=== PATIENT | female | born 1950 | race Caucasian/White ===

== ENCOUNTER 2019-10-27 18:49 | Emergency (ER) | payer MEDICARE, OTHER, SELFPAY ==
[2019-10-27 18:54] VITALS: BP 136/108; PULSE 64; RESP 24; O2SAT 98
--- NOTE | 2019-10-27 18:56 | DI.RAD.S_ITS ---
PROCEDURE: XR CHEST 1V INDICATIONS: chest pain TECHNIQUE: One view of the chest was acquired. COMPARISON: None. FINDINGS: Surgical changes and devices: None. Lungs and pleura: Lungs are clear. No pleural effusions or pneumothorax. Mediastinum: Mediastinal contours appear normal. Heart size is normal. Bones and chest wall: No suspicious bony lesions. Overlying soft tissues appear unremarkable. IMPRESSION: No acute cardiopulmonary disease process. Dictated by: Alysia Castro MD, PhD on 10/27/2019 at 19:13 Approved by: Alysia Castro MD, PhD on 10/27/2019 at 19:13
[2019-10-27 19:06] LABS: Add Manual Diff / Slide Review NO; Basophils Absolute Auto 100 /uL (0-100); Basophils Percent Auto 0.9 % (0-2); Eosinophils Absolute Auto 500 /uL (0-450); Eosinophils Percent Auto 5.9 % (2-4); Hematocrit 37.7 % (36-46); Hemoglobin 12.8 g/dL (12.0-16.0); Lymphocytes Absolute Auto 1700 /uL (1100-4500); Lymphocytes Percent Auto 21.8 % (25-40); Mean Corpuscular HGB Conc 33.9 % (30-36); Mean Corpuscular Volume 88.4 fL (80-100); Monocytes Absolute Auto 600 /uL (0-900); Monocytes Percent Auto 8.1 % (3-14); Neutrophils Absolute Auto 5000 /uL (1500-7000); Neutrophils Percent Auto 63.3 % (50-75); Platelet Count 242 X10^3/uL (150-400); Red Blood Cell Count 4.26 X10^6/uL (4.0-5.2); Red Cell Distribution Width 13.3 % (11.6-14.8); White Blood Cell Count 7.9 X10^3/uL (4.5-11.0)
[2019-10-27 19:12] LABS: INR 0.9 (0.9-1.3); Prothrombin Time 10.8 SECONDS (10.1-12.7)
--- NOTE | 2019-10-27 19:13 | ED.CHESTPAIN ---
HPI - Chest Pain General Chief Complaint: Chest Pain Stated Complaint: CHEST PAIN Time Seen by Provider: 10/27/19 18:55 Source: patient Mode of arrival: Ambulatory Limitations: no limitations History of Present Illness HPI narrative: 69-year-old female here for evaluation of chest pressure. She states she woke up with a pressure this morning. Was not worse with palpation or movement. Potentially worse when she took a deep breath. She states that has been off and on throughout the day. Has never had anything like this in the past. Has had a stress test in the past that was 10 years ago. Time my evaluation patient was symptom-free. Has not tried anything for her symptoms prior to arrival Related Data Previous Rx's Medication Instructions Recorded sucralfate [Carafate] 10 ml PO QID #420 ml 10/27/19 Allergies Allergy/AdvReac Type Severity Reaction Status Date / Time Penicillins Allergy Unknown Verified 10/27/19 18:58 Review of Systems Constitutional Constitutional: Denies fever(s) and Denies headache(s) ENT Ears, Nose, Mouth, and Throat: Denies headache(s) and Denies sore throat Cardiovascular Cardiovascular: Reports chest pain, Denies palpitations and Denies dyspnea Respiratory Respiratory: Denies dyspnea Gastrointestinal Gastrointestinal: Denies abdominal pain, Denies nausea and Denies vomiting Genitourinary Genitourinary: Denies dysuria Musculoskeletal Musculoskeletal: Denies back pain, Denies myalgias and Denies arthralgias Integumentary/Breasts Skin/Breast: Denies lesions and Denies rash Neurologic Neurologic: Denies behavioral changes and Denies headache(s) Psychiatric Psychiatric: Denies behavioral changes Endocrine Endocrine: Denies palpitations Hematologic/Lymphatic Hematologic/Lymphatic: Denies easy bleeding and Denies easy bruising Patient History Medical History (Updated 10/28/19 @ 01:35 by Reinier Rivas DO) Gastroesophageal reflux disease (Acute) Social History Smoking Status: Never smoker Smoking Status: Never smoker alcohol intake frequency: 0-2 drinks per day Substance Use Type: does not use Exam Initial Vital Signs Initial Vital Signs: Vital Signs Pulse Rate 64 10/27/19 18:54 Respiratory Rate 24 10/27/19 18:54 Blood Pressure 136/108 H 10/27/19 18:54 Pulse Oximetry 98 10/27/19 18:54 Const General: cooperative, healthy appearing and comfortable HENMT Head: normal to inspection and normocephalic Resp Effort & Inspection: normal respiratory effort Auscultation: clear to auscultation bilaterally Cardio Rate: regular rate Rhythm: regular rhythm GI Inspection: non-distended Palpation: No firm Skin Lesions: no lesions Rashes: no rashes Neuro General: alert, awake and oriented x3 Cognition: normal cognition Speech: speech normal Motor: muscle tone normal throughout Extrem General: normal to inspection, capillary refill normal and No edema Psych Appearance: grossly normal and well kempt Scores GCS [place] coma scale eye opening: Spontaneous [place] coma scale verbal response: Orientated [place] coma scale motor response: Obey commands [place] coma scale total score: 15 HEART Score Heart Score history: Slightly Suspicious Heart Score EKG: Normal Heart Score Age: > or = 65 years old Heart Score risk factors: 1-2 risk factors Heart Score troponin: < or = to normal limit Heart Score Total: 3 Course Orders Ordered: ED Orders 10/27/19 18:56 XR chest 1V Stat 10/27/19 18:57 EKG-12 Lead Stat 10/27/19 19:00 Complete Blood Count AUTO DIFF Stat Comprehensive Metabolic Panel Stat Lipase Stat Partial Thromboplastin Time Stat Prothrombin Time INR Stat Troponin I Stat Discontinued Medications Apixaban (Eliquis) 10 mg PO NOW ONE Stop: 10/27/19 20:14 Last Admin: 10/27/19 20:14 Dose: Not Given Documented by: ILYA Al Hydrox/Mg Hydrox/Simethicone 20 ml/ Lidocaine HCl 15 ml 0 ml PO NOW ONE Stop: 10/27/19 20:11 Last Admin: 10/27/19 20:17 Dose: 45 ml Documented by: JENNIFER Vital Signs Vital signs: Vital Signs - 8 hr 10/27/19 18:54 10/27/19 19:30 10/27/19 20:01 Pulse Rate 64 52 L 51 L Respiratory Rate 24 12 18 Blood Pressure 136/108 H Blood Pressure [Left Arm] 142/66 H 140/67 Pulse Oximetry 98 97 98 MDM - Chest Pain Lab Data Attestation: I reviewed the patient's lab results. Result diagrams: 10/27/19 19:00 10/27/19 19:00 Labs: Lab Results 10/27/19 10/27/19 10/27/19 Range/Units 19:00 19:00 19:00 WBC 7.9 (4.5-11.0) X10^3/uL RBC 4.26 (4.0-5.2) X10^6/uL Hgb 12.8 (12.0-16.0) g/dL Hct 37.7 (36-46) % MCV 88.4 (80-100) fL MCH 30.0 (26-34) PG MCHC 33.9 (30-36) % RDW 13.3 (11.6-14.8) % Plt Count 242 (150-400) X10^3/uL Neut % (Auto) 63.3 (50-75) % Lymph % (Auto) 21.8 L (25-40) % [place] % (Auto) 8.1 (3-14) % Eos % (Auto) 5.9 H (2-4) % Baso % (Auto) 0.9 (0-2) % Neut # (Auto) 5000 (3845-7803) /uL Lymph # (Auto) 1700 (9348-1203) /uL [place] # (Auto) 600 (0-900) /uL Eos # (Auto) 500 H (0-450) /uL Baso # (Auto) 100 (0-100) /uL PT 10.8 (10.1-12.7) SECONDS INR 0.9 (0.9-1.3) APTT 31 (26.4-36.2) SECONDS Sodium 137 (137-145) mmol/L Potassium 3.8 (3.4-5.1) mmol/L Chloride 101 (98-107) mmol/L Carbon Dioxide 28 (22-32) mmol/L BUN 24 H (7-17) mg/dL Creatinine 0.70 (0.52-1.04) mg/dL Estimated GFR > 60.0 (>60) mL/min BUN/Creatinine Ratio 34.3 H (6-22) Glucose 95 (80-110) mg/dL Calcium 10.2 (8.4-10.2) mg/dL Total Bilirubin 0.5 (0.2-1.3) mg/dL AST 38 H (14-36) IU/L ALT 48 H (<35) IU/L Alkaline Phosphatase 92 (38-126) U/L Troponin I < 0.012 (0.01-0.034) ng/mL Total Protein 7.0 (6.3-8.2) g/dL Albumin 4.3 (3.5-5.0) g/dL Globulin 2.7 (1.7-4.1) g/dL Albumin/Globulin Ratio 1.6 (1.0-2.8) Lipase 71 (23-300) U/L Imaging Data Chest x-ray: Radiologist's Impression: [address] [id number] XRay Report Signed Patient: Olga Blackwood BMR#: [id number] : 2Acct:[id number] Age/Sex: 69 / FDate of Service: 10/27/19 Loc: ED Accession Number: [id number] Procedure: XR chest 1V Ordering Provider: Reinier Rivas D.O. PROCEDURE: XR CHEST 1V INDICATIONS: chest pain TECHNIQUE: One view of the chest was acquired. COMPARISON: None. FINDINGS: Surgical changes and devices: None. Lungs and pleura: Lungs are clear. No pleural effusions or pneumothorax. Mediastinum: Mediastinal contours appear normal. Heart size is normal. Bones and chest wall: No suspicious bony lesions. Overlying soft tissues appear unremarkable. IMPRESSION: No acute cardiopulmonary disease process. Dictated by: Alysia Castro MD, PhD on 10/27/2019 at 19:13 Approved by: Alysia Castro MD, PhD on 10/27/2019 at 19:13 ECG Data Attestation: I personally reviewed and interpreted this ECG as follows: Prior ECG tracings: not available for review Interpretation: Sinus bradycardia Ventricular rate of 56, occasional PACs Normal axis Normal QRS Normal QTC No ST T wave changes MDM Narrative Medical decision making narrative: Patient has been asymptomatic since being here in the emergency department. Her EKG is unremarkable. Chest x-ray is unremarkable. Troponin is negative. She has had off and on symptoms throughout today. Had a long discussion with her and her regarding her symptoms. She does have a low risk heart score. We did discuss staying here in the emergency department for a 2nd troponin. We did discuss her risks of acute coronary syndrome. After this discussion patient decided not to stay for the 2nd troponin. She was alert oriented x3. GCS 15. In my opinion and the capacity to make decisions. No distracting injuries. Her was at bedside when we had the discussion. I did inform her that she needed to talk with her primary doctor about obtaining a stress test. She was given return precautions and follow-up instructions. She expressed understanding and agreement with plan. Discharge Plan Departure Patient Disposition: Home Clinical Impression: Atypical chest pain Discharge Date/Time: 10/27/19 20:27 Instructions: DI for Atypical Chest Pain Activity Restrictions/Additional Instructions: Take the Carafate like we discussed. Contact your primary doctor to discuss the indications for further testing to include a stress test. Return to the emergency department for any new or worsening symptoms Prescriptions: New sucralfate [Carafate] 100 mg/mL suspension 10 ml PO QID Qty: 420 RF: 0
[2019-10-27 19:15] LABS: PTT Partial Thromboplastin Tim 31 SECONDS (26.4-36.2)
[2019-10-27 19:19] LABS: Alanine Aminotransferase 48 IU/L (<35); Albumin 4.3 g/dL (3.5-5.0); Albumin Globulin Ratio 1.6 (1.0-2.8); Alkaline Phosphatase 92 U/L (38-126); Aspartate Aminotransferase 38 IU/L (14-36); BUN Creatinine Ratio 34.3 (6-22); Bilirubin Total 0.5 mg/dL (0.2-1.3); Blood Urea Nitrogen 24 mg/dL (7-17); Calcium 10.2 mg/dL (8.4-10.2); Carbon Dioxide 28 mmol/L (22-32); Chloride 101 mmol/L (98-107); Estimated Glomerular Filt Rate > 60.0 mL/min (>60); Globulin 2.7 g/dL (1.7-4.1); Glucose 95 mg/dL (80-110); HEMOLYSIS < 15 (0-50); Lipase 71 U/L (23-300); Potassium 3.8 mmol/L (3.4-5.1); Sodium 137 mmol/L (137-145)
[2019-10-27 19:30] VITALS: BP 142/66; PULSE 52; RESP 12; O2SAT 97
[2019-10-27 19:31] LABS: Troponin I < 0.012 ng/mL (0.01-0.034)
[2019-10-27 20:01] VITALS: BP 140/67; PULSE 51; RESP 18; O2SAT 98
[2019-10-27] MEDS: MAG HYDROX/ALUMINUM/SIMETH SUS 20 ML, LIDOCAINE VISCOUS 2% 15 ML PO (20:17)
== END 2019-10-27 20:27 | disposition home or self-care (01) ==
PROVIDERS: Emergency Provider Emergency Medicine
DX: R07.89 Other chest pain (principal)
CPT/HCPCS: 36415; 71045; 80053; 83690; 84484; 85025; 85610; 85730; 93005; 99284; 99285

== ENCOUNTER 2022-10-27 16:03 | Emergency (ER) | payer MEDICARE, OTHER, SELFPAY ==
[2022-10-27 16:21] VITALS: BP 110/75; PULSE 60; RESP 15; TEMP 36.8; O2SAT 96; BMI 26.8
--- NOTE | 2022-10-27 16:27 | DI.RAD.S_ITS ---
PROCEDURE: XR CHEST 2V INDICATIONS: cough TECHNIQUE: 2 views of the chest were acquired. COMPARISON: [facility], CR, XR CHEST 1V, 10/27/2019, 19:05. FINDINGS: Surgical changes and devices: None. Lungs and pleura: Lungs are clear. No pleural effusions or pneumothorax. Mediastinum: Mediastinal contours are normal. Heart size is normal. Bones and chest wall: No suspicious bony abnormalities. Soft tissues appear unremarkable. IMPRESSION: No evidence acute pulmonary process. Dictated by: Tahir Dumas M.D. on 10/27/2022 at 17:12 Approved by: Tahir Dumas M.D. on 10/27/2022 at 17:12
[2022-10-27 17:17] LABS: Influenza A - CEPHEID Flu A NEGATIVE (NEGATIVE); Influenza B - CEPHEID Flu B NEGATIVE (NEGATIVE); Respiratory Syncytial Virus Negative (Negative)
[2022-10-27 17:24] LABS: COVID-19 CEPHEID 4-PLEX PCR POSITIVE (Negative)
--- NOTE | 2022-10-27 18:27 | ED_ITS ---
HPI - General Adult General Chief complaint: Upper Respiratory Symptoms Stated complaint: Fever, Sore throat, Cough Time Seen by Provider: 10/27/22 18:27 Source: patient Mode of arrival: Ambulatory History of Present Illness HPI narrative: 72-year-old woman with a history of hypothyroidism and hyperlipidemia had a mild upper respiratory infection for the last 3 days. Minor cough, no hypoxia, chest pain, palpitations, mild nausea but no vomiting or diarrhea. She is had minimal fever. Saw her primary care doctor today after a negative COVID test at home. Was concerned that she still had COVID and send her to the emergency department for COVID test and a chest x-ray. COVID test is positive chest x-ray is unremarkable. Related Data Previous Rx's Medication Instructions Recorded sucralfate 100 mg/mL oral 10 ml PO QID #420 mL 10/27/19 suspension (Carafate) benzonatate 200 mg capsule 200 mg PO BID-TID PRN cough #20 10/27/22 caps nirmatrelvir 300 mg (150 mg See Rx Instructions PO .COMPLEX 10/27/22 x2)-ritonavir 100 mg tablet,dose #30 ea pack(EUA) (Paxlovid) Allergies Allergy/AdvReac Type Severity Reaction Status Date / Time Penicillins Allergy Unknown Verified 10/27/22 16:21 Review of Systems Review of Systems Narrative: Remainder of complete review of systems is otherwise unremarkable except for that included in the HPI. Patient History Medical History (Updated 10/27/22 @ 18:44 by Maria Ines Mock MD) Gastroesophageal reflux disease Hyperlipidemia Hypothyroidism (acquired) Social History Smoking Status: Never smoker Smoking Status: Never smoker alcohol intake frequency: holidays/special occasions only Substance Use Type: does not use Exam Initial Vital Signs Initial Vital Signs: Vital Signs Temperature 98.3 F 10/27/22 16:21 Pulse Rate 60 10/27/22 16:21 Respiratory Rate 15 10/27/22 16:21 Blood Pressure 110/75 10/27/22 16:21 Pulse Oximetry 96 10/27/22 16:21 Oxygen Delivery Method 10/27/22 16:21 General: Healthy appearing, in no acute distress. Able to give a complete and coherent history. Well-nourished well-developed HEENT: Moist mucous membranes, normal sclera with reactive pupils, Neck: No cervical adenopathy Respiratory: Lungs are clear to auscultation, no wheezing no rales no rhonchi. Full and symmetrical air movement Cardiac: Regular rate and rhythm no murmurs no bruits Abdomen: Soft, nontender, good bowel tones, no flank pain Skin: Warm and dry, no rashes Neurologic: Grossly neurologically intact with no obvious asymmetries or abnormalities Psych: Cooperative, appropriate insight and affect Course Orders Ordered: ED Orders 10/27/22 16:25 Covid-19 + FLU A/B + RSV - PCR Stat 10/27/22 16:27 Chest [XR chest 2V] Stat Vital Signs Vital signs: Vital Signs - 8 hr 10/27/22 16:21 Temperature 98.3 F Pulse Rate 60 Respiratory Rate 15 Blood Pressure 110/75 Pulse Oximetry 96 Oxygen Delivery Method Room Air Medical Decision Making Lab Data Labs: Lab Results 10/27/22 Range/Units 16:25 SARS-CoV-2 (PCR) Positive H (Negative) Influenza A (RT-PCR) Flu a negative (NEGATIVE) Influenza B (RT-PCR) Flu b negative (NEGATIVE) RSV (PCR) Negative (Negative) Imaging Data Chest x-ray: Radiologist's Impression: FINDINGS:? ? Surgical changes and devices:? None.? ? Lungs and pleura:? Lungs are clear.? No pleural effusions or pneumothorax.? ? Mediastinum:? Mediastinal contours are normal.? Heart size is normal.? ? Bones and chest wall:? No suspicious bony abnormalities.? Soft tissues appear unremarkable.? ? IMPRESSION:? No evidence acute pulmonary process. ? ? ? Dictated by: Tahir Dumas M.D. on 10/27/2022 at 17:12 ? ? MDM Narrative Medical decision making narrative: URI symptoms without hypoxia for 3 days positive COVID test negative chest x- ray. No contraindications to paxlovid. Prescription is written, reviewed anticipated course of recovery, reasons to return to the emergency department. Her has similar symptoms and is also given a prescription for paxlovid. They are safe for discharge home Discharge Plan Departure Patient Disposition: Home Clinical Impression: COVID-19 Instructions: COVID-19 Activity Restrictions/Additional Instructions: Thank you for coming in today You do have COVID via PCR testing. Your chest x-ray is unremarkable and your oxygen levels are excellent. This will likely be a mild cold like event for you. If you find that you are getting worse, please feel free to return to the emergency department. There is evidence that starting Paxlovid within 5 days of initial symptoms is helpful in avoiding hospitalization and additional complications. I have given you a prescription for this along with a prescription for benzonatate to help with the cough and see if you can improve overall sleep to heal more efficiently. Prescriptions: New Paxlovid (EUA) 300 mg (150 mg x 2)-100 mg tablets,dose pack See Rx Instructions .ROUTE .COMPLEX Qty: 30 0RF Rx Instructions: take TWO 150 mg tablets of nirmatrelvir with ONE 100 mg tablet of ritonavir twice daily for 5 days benzonatate 200 mg capsule 200 mg PO BID-TID PRN (Reason: cough) Qty: 20 0RF No Action sucralfate [Carafate] 100 mg/mL suspension 10 ml PO QID Qty: 420 0RF Rx Instructions: swish in mouth and swallow; use after food/drink
== END 2022-10-27 18:53 | disposition home or self-care (01) ==
PROVIDERS: Emergency Medicine; Emergency Provider Emergency Medicine
DX: U07.1 COVID-19 (principal)
CPT/HCPCS: 0241U; 71046; 99281; 99283

== ENCOUNTER 2023-03-01 19:53 | Emergency (ER) | payer MEDICARE, OTHER, SELFPAY ==
[2023-03-01] VITALS (7 sets, daily range): BP systolic 119–144; BP diastolic 61–72; PULSE 59–78; RESP 18; TEMP 37.3; O2SAT 94–98; BMI 26.4
[2023-03-01] MEDS: ONDANSETRON 4 MG/2 ML INJ IV (20:26)
[2023-03-01 21:09] LABS: Add Manual Diff / Slide Review NO; Basophils Absolute Auto 0 /uL (0-100); Basophils Percent Auto 0.3 % (0-2); Eosinophils Absolute Auto 200 /uL (0-450); Eosinophils Percent Auto 1.6 % (2-4); Hematocrit 41.2 % (36-46); Hemoglobin 14.2 g/dL (12.0-16.0); Lymphocytes Absolute Auto 300 /uL (1100-4500); Lymphocytes Percent Auto 3.6 % (25-40); Mean Corpuscular HGB Conc 34.5 % (30-36); Mean Corpuscular Hemoglobin 30.2 PG (26-34); Mean Corpuscular Volume 87.5 fL (80-100); Monocytes Absolute Auto 300 /uL (0-900); Monocytes Percent Auto 3.4 % (3-14); Neutrophils Absolute Auto 8500 /uL (1500-7000); Neutrophils Percent Auto 91.1 % (50-75); Platelet Count 252 X10^3/uL (150-400); Red Blood Cell Count 4.71 X10^6/uL (4.0-5.2); White Blood Cell Count 9.3 X10^3/uL (4.5-11.0)
[2023-03-01 21:21] LABS: Alanine Aminotransferase 40 IU/L (<35); Albumin 4.4 g/dL (3.5-5.0); Albumin Globulin Ratio 1.5 (1.0-2.8); Alkaline Phosphatase 82 U/L (38-126); Aspartate Aminotransferase 36 IU/L (14-36); BUN Creatinine Ratio 31.1 (6-22); Bilirubin Total 0.6 mg/dL (0.2-1.3); Blood Urea Nitrogen 23 mg/dL (7-17); Carbon Dioxide 23 mmol/L (22-32); Chloride 105 mmol/L (98-107); Estimated Glomerular Filt Rate > 60 mL/min (>60); Glucose 118 mg/dL (80-110); HEMOLYSIS < 15 (0-50); Lipase 27 U/L (23-300); Sodium 136 mmol/L (137-145); Total Protein 7.4 g/dL (6.3-8.2)
[2023-03-01] MEDS: SODIUM CHLORIDE 0.9% 1,000 ML 1000 ML IV (21:50)
--- NOTE | 2023-03-01 23:20 | ED_ITS ---
HPI - Nausea/Vomiting/Diarrhea General Chief complaint: Nausea/Vomiting/Diarrhea Stated complaint: Vomiting, Diarrhea Time Seen by Provider: 03/01/23 21:36 Source: patient Mode of arrival: Ambulatory History of Present Illness HPI Narrative: Patient is a healthy 72-year-old female who presents with nausea vomiting diarrhea that started around 3:00 a.m. today. She says it is really been unable to. She has a little bit of abdominal cramping. No dizziness or lightheadedness. She denies any recent antibiotics. She and her did travel to [place] fairly recently but he is not sick. No fevers or chills. She is generally does not feel well. Related Data Previous Rx's Medication Instructions Recorded sucralfate 100 mg/mL oral 10 ml PO QID #420 mL 10/27/19 suspension (Carafate) benzonatate 200 mg capsule 200 mg PO BID-TID PRN cough #20 10/27/22 caps nirmatrelvir 300 mg (150 mg See Rx Instructions PO .COMPLEX 10/27/22 x2)-ritonavir 100 mg tablet,dose #30 ea pack(EUA) (Paxlovid) ondansetron 4 mg disintegrating 4 mg PO Q8H PRN nausea and 03/01/23 tablet vomiting #10 tabs Allergies Allergy/AdvReac Type Severity Reaction Status Date / Time Penicillins Allergy Unknown Verified 03/01/23 20:18 Review of Systems Review of Systems ROS Unobtainable: All systems reviewed & are unremarkable except as noted in HPI and below Patient History Medical History Gastroesophageal reflux disease Hyperlipidemia Hypothyroidism (acquired) Social History Smoking Status: Never smoker Smoking Status: Never smoker alcohol intake frequency: holidays/special occasions only Substance Use Type: does not use Exam Initial Vital Signs Initial Vital Signs: Vital Signs Temperature 99.1 F 03/01/23 19:58 Pulse Rate 65 03/01/23 19:58 Respiratory Rate 18 03/01/23 19:58 Blood Pressure 138/67 03/01/23 19:58 Pulse Oximetry 96 03/01/23 19:58 Oxygen Delivery Method Room Air 03/01/23 19:58 GENERAL: Alert pleasant 72-year-old female and in no acute distress. HEENT: Head atraumatic,EOMI, pupils reactive, face symmetric, moist mucous membranes CARDIOVASCULAR: Regular rate and rhythm without murmurs, rubs or gallops. RESPIRATORY: Breath sounds equal bilaterally, no wheezes rales or rhonchi. ABDOMEN: Soft, nontender. Normoactive bowel sounds all 4 quadrants. No guarding or rebound. EXTREMITIES: Normal range of motion, no clubbing or edema. Neurovascularly intact NEUROLOGICAL: Alert and oriented x4.Normal gait and speech. SKIN: Warm, dry, no laceration, no petechiae, no rashes or lesions. Course Orders Ordered: ED Orders 03/01/23 20:18 EKG-12 Lead Stat 03/01/23 20:30 Complete Blood Count AUTO DIFF Stat Comprehensive Metabolic Panel Stat Lipase Stat Discontinued Medications Sodium Chloride (Normal Saline 0.9%) 1,000 mls @ 1,000 mls/hr IV BOLUS ONE Stop: 03/01/23 22:35 Last Infusion: 03/01/23 22:46 Dose: 0 mls/hr Documented By: Admin: 03/01/23 21:50 Dose: 1,000 mls/hr Documented By: AMU Ondansetron HCl (Ondansetron 4 Mg/2 Ml Inj) 4 mg IV NOW PRN PRN Reason: Nausea And Vomiting Last Admin: 03/01/23 20:26 Dose: 4 mg Documented By: LEONILA Ondansetron HCl (Ondansetron 4 Mg Odt Prepack) 1 bottle MISC SEEINSTR ONE Stop: 03/01/23 23:27 Last Admin: 03/01/23 23:32 Dose: 1 bottle Documented By: AMU Vital Signs Vital signs: Vital Signs - 8 hr 03/01/23 19:58 03/01/23 21:31 03/01/23 21:31 Temperature 99.1 F Pulse Rate 65 62 Respiratory Rate 18 Blood Pressure 138/67 144/65 H Pulse Oximetry 96 96 Oxygen Delivery Method Room Air Room Air 03/01/23 21:48 03/01/23 21:48 03/01/23 22:00 Temperature Pulse Rate 69 Respiratory Rate Blood Pressure 119/71 127/61 Pulse Oximetry Oxygen Delivery Method 03/01/23 22:00 03/01/23 22:30 03/01/23 22:30 Temperature Pulse Rate 66 78 Respiratory Rate Blood Pressure 136/64 Pulse Oximetry 95 94 Oxygen Delivery Method 03/01/23 23:00 03/01/23 23:00 03/01/23 23:30 Temperature Pulse Rate 61 59 L Respiratory Rate Blood Pressure 139/72 Pulse Oximetry 96 98 Oxygen Delivery Method MDM - Nausea/Vomiting/Diarrhea Lab Data 03/01/23 20:30 03/01/23 20:30 Labs: Lab Results 03/01/23 03/01/23 Range/Units 20:30 20:30 WBC 9.3 (4.5-11.0) X10^3/uL RBC 4.71 (4.0-5.2) X10^6/uL Hgb 14.2 (12.0-16.0) g/dL Hct 41.2 (36-46) % MCV 87.5 (80-100) fL MCH 30.2 (26-34) PG MCHC 34.5 (30-36) % RDW 14.0 (11.6-14.8) % Plt Count 252 (150-400) X10^3/uL Neut % (Auto) 91.1 H (50-75) % Lymph % (Auto) 3.6 L (25-40) % [place] % (Auto) 3.4 (3-14) % Eos % (Auto) 1.6 L (2-4) % Baso % (Auto) 0.3 (0-2) % Neut # (Auto) 8500 H (2889-8174) /uL Lymph # (Auto) 300 L (4456-9849) /uL [place] # (Auto) 300 (0-900) /uL Eos # (Auto) 200 (0-450) /uL Baso # (Auto) 0 (0-100) /uL Sodium 136 L (137-145) mmol/L Potassium 4.0 (3.4-5.1) mmol/L Chloride 105 (98-107) mmol/L Carbon Dioxide 23 (22-32) mmol/L BUN 23 H (7-17) mg/dL Creatinine 0.74 (0.52-1.04) mg/dL Estimated GFR > 60 (>60) mL/min BUN/Creatinine Ratio 31.1 H (6-22) Glucose 118 H (80-110) mg/dL Calcium 9.0 (8.4-10.2) mg/dL Total Bilirubin 0.6 (0.2-1.3) mg/dL AST 36 (14-36) IU/L ALT 40 H (<35) IU/L Alkaline Phosphatase 82 (38-126) U/L Total Protein 7.4 (6.3-8.2) g/dL Albumin 4.4 (3.5-5.0) g/dL Globulin 3.0 (1.7-4.1) g/dL Albumin/Globulin Ratio 1.5 (1.0-2.8) Lipase 27 (23-300) U/L Urine Dip Bedside Urine Glucose Negative Bedside Urine Bilirubin - Negative Bedside Urine Ketone +/- 5 Urine Specific [place] 1.030 Bedside Urine Occult Blood - Negative Bedside Urine pH 5.0 Bedside Urine Protein - Negative Bedside Urine Urobilinogen +/- 1mg Bedside Urine Nitrite - Negative Bedside Urine Leukocytes - Negative Esterase ECG Data Interpretation: Normal sinus rhythm rate 68 DC interval 122 QRS [address] changes or T- wave inversions MDM Narrative Medical decision making narrative: Patient is 72-year-old female without comorbidities presents to gastroenteritis like symptoms nausea vomiting diarrhea ongoing for under 24 hours. No evidence of acute dehydration no electrolyte abnormality or LAINA. She received IV fluids and Zofran. She is overall feeling better. Her abdomen is soft and nontender. No need for imaging at this time. Discussion of oral rehydration technique with her. Patient and both understand and agree. She is no leukocytosis or anemia on her blood work no need for antibiotics. Symptoms are consistent with a viral illness Discharge Plan Departure Patient Disposition: Home Clinical Impression: Gastroenteritis Instructions: DI for Viral Gastroenteritis -- Adult Activity Restrictions/Additional Instructions: 1) You have been diagnosed with gastroenteritis 2) What to do: Drink frequent but small amounts of fluids. I recommend Gatorade or a Gatorade-like product, as it has small amounts of sugar and salts that improve fluid retention. 3) Take medications as directed Zofran 4 mg every 8 hours if needed for nausea or vomiting 4) Follow up with your primary care provider in 2-3 days 5) Return to ER if you should have any new or worsening symptoms such as, unable to hold down fluids despite use of anti-nausea medications and the small volume oral rehydration strategy. Prescriptions: New ondansetron 4 mg tablet,disintegrating 4 mg PO Q8H PRN (Reason: nausea and vomiting) Qty: 10 0RF No Action sucralfate [Carafate] 100 mg/mL suspension 10 ml PO QID Qty: 420 0RF Rx Instructions: swish in mouth and swallow; use after food/drink Paxlovid (EUA) 300 mg (150 mg x 2)-100 mg tablets,dose pack See Rx Instructions .ROUTE .COMPLEX Qty: 30 0RF Rx Instructions: take TWO 150 mg tablets of nirmatrelvir with ONE 100 mg tablet of ritonavir twice daily for 5 days benzonatate 200 mg capsule 200 mg PO BID-TID PRN (Reason: cough) Qty: 20 0RF Stand Alone Forms: Patient Portal/API
[2023-03-01] MEDS: ONDANSETRON 4 MG ODT PREPACK 1 BOTTLE MISC (23:32)
== END 2023-03-01 23:37 | disposition home or self-care (01) ==
PROVIDERS: Emergency Provider Emergency Medicine
DX: K52.9 Noninfective gastroenteritis and colitis, unspecified (principal); R10.9 Unspecified abdominal pain
CPT/HCPCS: 36415; 80053; 81003; 83690; 85025; 93005; 93010; 96361; 96374; 99284; J2405

== ENCOUNTER → 2023-04-17 11:15 | Outpatient (CLI) | payer MEDICARE, OTHER, SELFPAY ==
--- NOTE | 2023-04-17 | DI.RAD.S_ITS ---
PROCEDURE: XR FOOT RT MIN 3V INDICATIONS: Rt Foot Pain TECHNIQUE: 3 views of the foot were acquired. COMPARISON: None. FINDINGS: Bones: No fractures or dislocations. No suspicious bony lesions. Mild polyarticular osteoarthritic degenerative changes noted. Soft tissues: No tibiotalar joint effusion. Achilles tendon appears normal. IMPRESSION: Mild osteoarthritis. Dictated by: Alysia Castro MD, PhD on 04/17/2023 at 13:17 Approved by: Alysia Castro MD, PhD on 04/17/2023 at 13:28
== END ==
PROVIDERS: PCP Internal Medicine; Referring Provider Podiatrist; Visit Provider Podiatrist
DX: M19.071 Primary osteoarthritis, right ankle and foot; M79.671 Pain in right foot
CPT/HCPCS: 73630

== ENCOUNTER 2023-08-09 08:47 | Day surgery (SDC) | payer MEDICARE, OTHER, SELFPAY ==
--- NOTE | 2023-08-09 | PATH_ITS ---
[facility] Accession Number: [id number] No. of containers..03 Tissue . 01 Material submitted: . PART A: colon - CECAL POLYP PART B: colon - ASCENDING POLYPS PART C: rectum - RECTAL POLYP . 01 Diagnosis: A. Cecal Polyp: Tubular adenoma. . B. Ascending Polyps: Portion of tubular adenoma x 1. Superficial portion of colorectal mucosa x 1 with benign lymphoid aggregates. . C. Rectal Polyp: Portions of tubulovillous adenoma. Negative for malignancy or high grade dysplasia. [facility] 08/16/2023 1019 Local . 01 Comment: As part of routine clinical quality assurance specialist, part C of this case was also reviewed by Dr. Ahumada, who agrees with the interpretation. . 01 Electronically signed: . Arpita Fox MD, Pathologist NPI- [id number] . 01 Gross description: . Part A: CECAL POLYP: Received in formalin is 1 fragment(s) of claire, soft tissue measuring 0.7 x 0.3 x 0.2 cm submitted entirely in 1 cassette(s) Part B: ASCENDING POLYPS: Received in formalin is 2 fragment(s) of claire, soft tissue measuring 0.6 x 0.4 x 0.4 cm to 0.5 x 0.3 x 0.2 cm submitted entirely in 1 cassette(s) Part C: RECTAL POLYP: Received in formalin is multiple fragment(s) of claire, soft tissue measuring 3.0 x 2.0 x 0.5 cm in aggregate submitted entirely in 1 cassette(s) /AAY 08/10/2023 0409 Local . 01 Pathologist provided ICD-10: K63.5 . 01 CPT . 065000, 269468, 101968 Specimen Comment: A courtesy copy of this report has been sent to [phone] Performed at: 01 [facility] [address] [facility], [place], [place] [id number] MD Jose Antonio Amaro MD Phone: [phone]
[2023-08-09] MEDS: LACTATED RINGERS 1,000 ML 150 ML IV (09:31)
[2023-08-09 09:42] VITALS: BMI 27.3
[2023-08-09 09:48] VITALS: BP 147/88; PULSE 56; RESP 18; TEMP 36.3; O2SAT 96
--- NOTE | 2023-08-09 10:02 | PM.HP.1 ---
History of Present Illness History of Present Illness Date Patient Seen: 08/09/23 Time Patient Seen: 10:02 Chief complaint: Colonoscopy Narrative: Susan is a 73-year-old woman who is here for a colonoscopy for rectal bleeding. Her last colonoscopy was about 15 years ago and [place]. See the office note from June for details. [facility] Medical History Arthritis Gastroesophageal reflux disease Hyperlipidemia Hypothyroidism (acquired) Macular degeneration Surgical History Hx of cholecystectomy Social History household members: spouse Smoking Status: Never smoker alcohol intake: current Meds Home Medications and Allergies Home Medications Medication Instructions Recorded Confirmed Type ezetimibe 10 mg tablet 10 mg PO DAILY 08/09/23 08/09/23 History levothyroxine 50 mcg tablet 50 mcg PO DAILY 08/09/23 08/09/23 History (Synthroid) vitamins A,C,P-dysp-wbakjf 2,148 2 tab PO BID 08/09/23 08/09/23 History mcg-113 mg-45 mg-17.4 mg tablet (PreserVision AREDS) Allergies Allergy/AdvReac Type Severity Reaction Status Date / Time Ztpouem-DJX-RzF Reductase Allergy Severe Joint Pain Verified 08/09/23 09:39 Inhibitor Penicillins Allergy Unknown Verified 03/01/23 20:18 ezetimibe [From Zetia] AdvReac Verified 08/09/23 09:37 Exam Vital Signs (past 8 hours): - 08/09/23 09:48 Temperature 97.3 F L Pulse Rate 56 L Respiratory Rate 18 Blood Pressure 147/88 H Pulse Oximetry 96 Oxygen Delivery Method Room Air Oxygen Delivery Method Room Air Const General: healthy appearing Resp Effort & Inspection: normal respiratory effort Assessment & Plan Assessment and plan (1) Rectal bleeding: Status: Acute Plan We reviewed the risks and benefits of colonoscopy for colon cancer screening and she would like to proceed.
--- NOTE | 2023-08-09 11:17 | PM.OP.COLON ---
Operative Date/Time/Diagnoses Date of procedure: 08/09/23 Time of procedure: 11:17 Pre-op diagnosis: Rectal bleeding Post-op diagnosis: same Procedure & Clinicians Study performed: Colonoscopy Same procedure as scheduled: Yes Surgeon: Price Carrera Procedure Notes Procedure in detail: Surgeon: Price Carrera MD Anesthesia: Wolf Carrillo DO Procedure: The patient was brought to the endoscopy suite, placed in left lateral decubitus position. The patient was connected to monitoring devices. A time-out was performed. Sedation was administered. Once the patient was adequately sedated, a digital rectal exam was performed and was normal. The scope was then inserted and advanced to the cecum where the appendiceal orifice was identified and photographed. The scope was then slowly withdrawn over greater than 6 minutes. The mucosa was thoroughly inspected. There was a 5 mm polyp in the cecum removed with a cold snare. There were 2 polyps in the ascending colon removed with cold snare and sent together. There was a rather large mass in mid rectum that was at least 3 cm and concerning for cancer. We removed four large pieces with a hot snare. We then injected tattoo ink along the distal aspect of the mass. The distal aspect of the mass was 8-10 cm from the anal verge. The tattoo ink was about 6-8 cm from anal verge. The scope was retroflexed in the rectum. No other abnormalities were seen. The scope was straightened and removed. The patient was awakened and brought to recovery. Scope withdrawal time: 20 minutes Sedation time: 26 minutes EBL: 5 mL Findings: 3 small polyps in the proximal colon and a large rectal mass 8-10 cm from the anal verge concerning for cancer Post-procedure Disposition: PACU
[2023-08-09 11:20] VITALS: BP 122/56; PULSE 51; RESP 18; TEMP 37.1; O2SAT 96
[2023-08-09 11:26] VITALS: BP 132/65; PULSE 50; RESP 16; TEMP 37; O2SAT 99
[2023-08-09 11:32] VITALS: BP 100/71; PULSE 51; RESP 14; TEMP 37; O2SAT 96
[2023-08-09 11:43] VITALS: BP 111/67; PULSE 52; RESP 14; TEMP 36.9; O2SAT 99
== END 2023-08-09 11:44 | disposition home or self-care (01) ==
PROVIDERS: PCP Internal Medicine; Referring Provider Surgery; Visit Provider Surgery
PROC: 0DJD8ZZ Inspection of Lower Intestinal Tract, Via Natural or Artificial Opening Endoscopic (ICD-10-PCS; CPT 45378; principal; 2023-08-09 10:15)
DX: K62.5 Hemorrhage of anus and rectum (principal); D12.0 Benign neoplasm of cecum; D12.2 Benign neoplasm of ascending colon; D12.8 Benign neoplasm of rectum
CPT/HCPCS: 45385; 45381; J2704

== ENCOUNTER → 2023-08-13 10:22 | Outpatient (CLI) | payer MEDICARE, OTHER, SELFPAY ==
--- NOTE | 2023-08-13 10:24 | DI.CT.S_ITS ---
PROCEDURE: CT ABDOMEN PELVIS W CON INDICATIONS: Rectal mass TECHNIQUE: After the administration of intravenous contrast, axial sections acquired from the lung bases to the pubic symphysis. Coronal and sagittal reformats were performed. For radiation dose reduction, the following was used: automated exposure control, adjustment of mA and/or kV according to patient size. COMPARISON: None. FINDINGS: Image quality: Excellent. Lung bases: Unremarkable. Heart: No significant findings. ABDOMEN: Liver: Low-attenuation, probably a patent steatosis. Gallbladder: Absent. Biliary ducts: Within normal limits, status post cholecystectomy. Pancreas: Unremarkable. Spleen: Unremarkable. Adrenal Glands: Unremarkable. Kidneys and Ureters: Unremarkable. Stomach and Bowel: Colonic diverticulosis without evidence of diverticulitis. No measurable mass. Peritoneum: No abnormal intraperitoneal fluid. No free air. Ventral Wall: No hernias. Abdominal Nodes: No retroperitoneal or mesenteric adenopathy by size criteria. Vessels: Aorta and inferior vena cava are normal in size. PELVIS: Pelvic Organs: Unremarkable. Bladder: Unremarkable. Pelvic Nodes: No enlarged lymph nodes. Miscellaneous: No hernias are seen. Bones: Unremarkable. IMPRESSION: No measurable mass. No pelvic adenopathy or retroperitoneal adenopathy. No evidence of metastatic disease. Colonic diverticulosis without evidence of diverticulitis. Dictated by: Julio Zeng M.D. on 08/13/2023 at 15:35 Approved by: Julio Zeng M.D. on 08/13/2023 at 15:39
[2023-08-13 10:58] LABS: Add Manual Diff / Slide Review NO; Basophils Absolute Auto 0 /uL (0-100); Basophils Percent Auto 0.8 % (0-2); Eosinophils Absolute Auto 500 /uL (0-450); Eosinophils Percent Auto 8.9 % (2-4); Hematocrit 35.8 % (36-46); Hemoglobin 12.1 g/dL (12.0-16.0); Lymphocytes Absolute Auto 1300 /uL (1100-4500); Lymphocytes Percent Auto 21.5 % (25-40); Mean Corpuscular Hemoglobin 29.9 PG (26-34); Mean Corpuscular Volume 88.1 fL (80-100); Monocytes Absolute Auto 600 /uL (0-900); Monocytes Percent Auto 9.5 % (3-14); Neutrophils Absolute Auto 3600 /uL (1500-7000); Neutrophils Percent Auto 59.3 % (50-75); Platelet Count 247 X10^3/uL (150-400); Red Blood Cell Count 4.06 X10^6/uL (4.0-5.2); Red Cell Distribution Width 13.6 % (11.6-14.8); White Blood Cell Count 6.1 X10^3/uL (4.5-11.0)
[2023-08-13 11:14] LABS: Alanine Aminotransferase 34 IU/L (<35); Albumin 3.9 g/dL (3.5-5.0); Albumin Globulin Ratio 1.3 (1.0-2.8); Alkaline Phosphatase 58 U/L (38-126); Aspartate Aminotransferase 35 IU/L (14-36); BUN Creatinine Ratio 41.7 (6-22); Bilirubin Total 0.6 mg/dL (0.2-1.3); Blood Urea Nitrogen 25 mg/dL (7-17); Calcium 9.1 mg/dL (8.4-10.2); Carbon Dioxide 25 mmol/L (22-32); Chloride 105 mmol/L (98-107); Estimated Glomerular Filt Rate > 60 mL/min (>60); Glucose 87 mg/dL (80-110); HEMOLYSIS 103 (0-50); Potassium 4.4 mmol/L (3.4-5.1); Sodium 137 mmol/L (137-145); Total Protein 6.9 g/dL (6.3-8.2)
[2023-08-13 11:44] LABS: Carcinoembryonic Antigen 0.7 ng/mL (0.1-3.0)
== END ==
PROVIDERS: PCP Internal Medicine; Referring Provider Surgery; Visit Provider Surgery
DX: K62.5 Hemorrhage of anus and rectum (principal); K57.90 Diverticulosis of intestine, part unspecified, without perforation or abscess without bleeding
CPT/HCPCS: 36415; 74177; 80053; 82378; 85025; Q9967

== ENCOUNTER 2023-09-17 12:18 | Day surgery (SDC) | payer MEDICARE, OTHER, SELFPAY ==
--- NOTE | 2023-09-17 | PATH_ITS ---
[facility] Accession Number: [id number] No. of containers..01 Tissue . 01 Material submitted: . rectum - RECTAL POLYP . 01 Diagnosis: Rectal Polyp: Tubulovillous adenoma. Negative for high-grade dysplasia or malignancy. [facility] 09/26/2023 1145 Local . 01 Electronically signed: . Javier Reid MD, PhD, Pathologist NPI- [id number] . 01 Gross description: . RECTAL POLYP: Received in formalin are multiple fragment(s) of claire, soft tissue measuring 0.1 x 0.1 x 0.1 cm to 2.0 x 1.5 x 1.2 cm which are serially sectioned and submitted entirely in 3 cassette(s) /KADIE 09/18/2023 1855 Local . 01 Pathologist provided ICD-10: D12.8 . 01 CPT . 369335 Specimen Comment: A courtesy copy of this report has been sent to [phone] Performed at: 01 [facility] [address] [place] [address] [facility], [place], [place] [id number] MD Jose Antonio Amaro MD Phone: [phone]
[2023-09-17 13:18] VITALS: BP 131/76; PULSE 81; RESP 16; TEMP 36.1; O2SAT 92; BMI 26.4
[2023-09-17] MEDS: LACTATED RINGERS 1,000 ML 42 ML IV (13:18)
--- NOTE | 2023-09-17 13:43 | PM.HP.1 ---
History of Present Illness History of Present Illness Date Patient Seen: 09/17/23 Time Patient Seen: 13:43 Chief complaint: Colonoscopy Narrative: [age] with a rectal polyp here for removal. I reviewed my recent office note. No changes. PFS Medical History Arthritis Macular degeneration Hyperlipidemia Hypothyroidism (acquired) Gastroesophageal reflux disease Surgical History Hx of cholecystectomy Social History household members: spouse Smoking Status: Never smoker alcohol intake: current Meds Home Medications and Allergies Home Medications Medication Instructions Recorded Confirmed Type levothyroxine 50 mcg tablet 50 mcg PO DAILY 08/09/23 09/17/23 History (Synthroid) vitamins A,C,Q-vqqo-xfpbrb 2,148 2 tab PO BID 08/09/23 09/17/23 History mcg-113 mg-45 mg-17.4 mg tablet (PreserVision AREDS) Allergies Allergy/AdvReac Type Severity Reaction Status Date / Time Xzhcnsg-TXG-QpG Reductase Allergy Severe Joint Pain Verified 08/09/23 09:39 Inhibitor Penicillins Allergy Unknown Verified 03/01/23 20:18 ezetimibe [From Zetia] AdvReac Verified 08/09/23 09:37 Review of Systems Review of Systems ROS: Yes All systems reviewed with the patient and are negative except as otherwise documented Exam Vital Signs (past 8 hours): - 09/17/23 13:18 Temperature 97.0 F L Pulse Rate 81 Respiratory Rate 16 Blood Pressure 131/76 Pulse Oximetry 92 Oxygen Delivery Method Room Air Oxygen Delivery Method Room Air Const General: cooperative HENMT Head: normal to inspection Eyes General: appearance normal, both eyes and all related structures Neck Neck: normal visual inspection Chest Chest: normal inspection of the chest Resp Effort & Inspection: normal respiratory effort Cardio Rate: regular rate GI Inspection: normal to inspection Skin General: no rashes or lesions noted Neuro General: patient alert and patient awake Extrem General: normal to inspection and no pedal edema Psych Appearance: grossly normal Assessment & Plan Assessment & Plan narrative: 73-year-old female with a history of rectal tubulovillous adenoma. Repeat colonoscopy for attempt at snare excision is pursued today.
--- NOTE | 2023-09-17 13:44 | PM.PREOP ---
Pre-operative Note Interval Note History & Physical reviewed/Exam performed by Physician: Yes Changes to H&P: No ASA Class (for procedural sedation): I
[2023-09-17 15:12] VITALS: BP 133/70; PULSE 59; RESP 19; TEMP 36.7; O2SAT 100
[2023-09-17 15:17] VITALS: BP 112/57; PULSE 58; RESP 17; O2SAT 100
--- NOTE | 2023-09-17 15:19 | PM.OP.COLON ---
Operative Date/Time/Diagnoses Date of procedure: 09/17/23 Time of procedure: 15:19 Pre-op diagnosis: Large rectal tubulovillous adenoma Post-op diagnosis: same Procedure & Clinicians Study performed: Proctosigmoidoscopy with submucosal saline injection and hot snare polypectomy Same procedure as scheduled: Yes Indications: Large rectal tubulovillous adenoma Surgeon: Cayetano Clark Procedure Notes SCOAP/Timeout: Done Procedure in detail: After the risks and benefits were explained, written and verbal informed consent was obtained. The patient was brought into the procedure room and placed into the left lateral decubitus position. Please see anesthesia notes for sedation details. Digital rectal examination was accomplished. The scope was introduced into the patient and advanced under direct visualization to the distal sigmoid. Polypectomy was performed as below. Comprehensive imaging was accomplished throughout the rectum including the dentate line. The colon was decompressed, the scope was then removed from the patient who tolerated the procedure well. Adult colonoscope Bowel prep adequate Because of the complexity of this polypectomy, procedure time was prolonged and 22 modifier is appropriate. Scope withdrawal time: Not applicable Sedation minutes: 41 Complications: none Impression: In the rectum a large tattoo was identified. I then saw a sizable perhaps 2.5 cm polyp on a fold at the rectosigmoid junction. The more proximal edge of this polyp was superficial and spreading. There was some concavity to this element of the polyp. I injected the polyp with approximately 7-8 cc of sterile saline and noted that all of the polyps seemed to appropriately lift indicating that it could be removed endoscopically. I secured a 24 mm snare around this polyp and in doing so could not visualize the back edge. After this polyp was excised using hot snare (some pure cut was required to complete the polypectomy and released the snare from the polyp), identified an approximately 5 mm by 9 mm strip of the proximal edge of this polyp that remained. We excised this with additional applications of snare excision. Any residual focus that appeared to possibly represent adenoma was ablated with the tip of the polypectomy snare. Multiple photographs were taken. It appeared as though all of the adenoma had been excised or ablated. There was no post polypectomy bleeding. I did not identify any obvious nonbleeding vessel within the bed. I endeavoring to put position the endoscope to start placing clips to close the polypectomy site defect. We placed an 11 mm micro tech clip down the endoscope. However this was extremely difficult to position the clip in an appropriate plane for initiation of clipping. Because of the technical inferior already of this brand of Endo clip I did not feel I could safely or effectively place Endo clips. Fortunately there was no bleeding and we left the polypectomy site as is. Endoscopic diagnosis Large rectal polyp removed with piecemeal polypectomy. Post-procedure Plan for aftercare: 1. Await histology. 2. As long as histology is confirmed benign, repeat colonoscopy for surveillance is recommended for 6 months. 3. Clear liquid diet for the next 24 hours. 4. No NSAIDs for 2 weeks. 5. Call with any concerning clinical changes or bleeding symptoms. Disposition: PACU
[2023-09-17 15:22] VITALS: BP 110/55; PULSE 48; RESP 16; O2SAT 100
[2023-09-17 15:28] VITALS: BP 108/59; PULSE 46; RESP 20; O2SAT 100
[2023-09-17 15:33] VITALS: BP 120/65; PULSE 45; RESP 13; TEMP 36.7; O2SAT 100
--- NOTE | 2023-09-17 15:48 | SUR.PHASEII ---
1532 - to Phase 2. No complaints voiced. Drinking sips of water. A&Ox3. Dr Clark asks that pt not be discharged until he has had a chance to talk to her. at beside.
== END 2023-09-17 16:00 | disposition home or self-care (01) ==
PROVIDERS: PCP Internal Medicine; Referring Provider Internal Medicine Gastroenterology; Visit Provider Internal Medicine Gastroenterology
PROC: 0DJD8ZZ Inspection of Lower Intestinal Tract, Via Natural or Artificial Opening Endoscopic (ICD-10-PCS; CPT 45378; principal; 2023-09-17 13:30)
DX: D12.8 Benign neoplasm of rectum (principal)
CPT/HCPCS: 45338; 45335; J1100; J1885; J2704